=== PATIENT | female | born 2000 | race African-American/Black ===

== ENCOUNTER 2023-08-07 15:08 | Emergency (ER) | payer SELFPAY ==
[2023-08-07 15:22] VITALS: BP 108/57; PULSE 97; RESP 16; TEMP 98.1; BMI 30.2
[2023-08-07 17:22] LABS: EPI CELLS 14 /uL (0-25.1); HCG,QUALITATIVE URINE Negative; HYALINE CASTS 9 /uL (0-3.1); PH,URINE 5.5 (5.0-8.0); URINE APPEARANCE CLOUDY; URINE BACTERIA >9,000 /uL (0-1359); URINE BILIRUBIN NEGATIVE (NEGATIVE); URINE COLOR YELLOW; URINE GLUCOSE (UA) NEGATIVE (NEGATIVE); URINE KETONE NEGATIVE (NEGATIVE); URINE LEUK ESTERASE 2+ (NEGATIVE); URINE NITRITE POSITIVE (NEGATIVE); URINE PROTEIN NEGATIVE (NEGATIVE); URINE RBC 9 /uL (0-23.9); URINE UROBILINOGEN 0.2 mg/dL (0.2-1.0); URINE WBC 271 /uL (0-25.8)
== END 2023-08-07 17:48 | disposition home or self-care (01) ==
LOC: JERFT 15:08
DX: N39.0 Urinary tract infection, site not specified (principal); R35.0 Frequency of micturition
CPT/HCPCS: 81003; 84703; 87086; 87186; 99283-25